=== PATIENT | male | born 2000 | race Caucasian/White ===

== ENCOUNTER 2020-06-21 11:27 | Emergency (ER) | payer BC ==
--- OUTSIDE RECORDS SUMMARY | 2020-06-21 11:30 | XMS REPORT | Continuity of Care Document ---
:2000 Author Organization [facility] t Address [facility] [address]. Fountain [address] [place] [id number] Care Team Providers Name Role Phone Long Attending Clinician Problems This patient has no known problems. Allergies, Adverse Reactions, Alerts This patient has no known allergies or adverse reactions. Medications This patient has no known medications. Procedures This patient has no known procedures. Encounters Start End Encounter Admission Attending Care Care Encounter Source Date/Time Date/Time Type Type Clinicians Facility Department ID 2018-11-26 2018-11-26 Telephone [facility] [id number] 00:00:00 00:00:00 Dev Mas [id number] [facility] [id number] [facility] [id number] 225 Results This patient has no known results.
--- NOTE | 2020-06-21 12:40 | RAD REPORT ---
EXAM DESCRIPTION: RAD - Knee Left 3 View - 06/21/2020 12:27 pm CLINICAL HISTORY: PAIN COMPARISON: No comparisons FINDINGS: No acute fracture or dislocation seen. No significant joint effusion evident.
--- NOTE | 2020-06-21 13:01 | ER ---
Nurse's Notes [facility] Name: Justin Edwards Age: 19 yrs Sex: Male : 2000 Arrival Date: 06/21/2020 Time: 11:31 Bed 11 Private MD: Diagnosis: Pain in right knee Presentation: 06/21 11:51 Chief complaint: Patient states: fell off a flatbed trailer about 0930 this morning. ca1 Reports pain and abrasion on L knee. 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 Coronavirus screen: Client denies travel out of the [place] in the last 14 days. At this time, the client does not indicate any symptoms associated with coronavirus-19. Ebola Screen: Patient negative for fever greater than or equal to 101.5 degrees Fahrenheit, and additional compatible Ebola Virus Disease symptoms Patient denies exposure to infectious person. Patient denies travel to an Ebola-affected area in the 21 days before illness onset. No symptoms or risks identified at this time. Initial Sepsis Screen: Does the patient meet any 2 criteria? No. Patient's initial sepsis screen is negative. Does the patient have a suspected source of infection? No. Patient's initial sepsis screen is negative. Risk Assessment: Do you want to hurt yourself or someone else? Patient reports no desire to harm self or others. Onset of symptoms was June 21, 2020. 11:51 Method Of Arrival: Ambulatory ca1 11:51 Acuity: LOUISE 4 ca1 Triage Assessment: 11:53 General: Appears in no apparent distress. comfortable, Behavior is calm, cooperative, ca1 appropriate for age. Pain: Complains of pain in left knee Pain currently is 5 out of 10 on a pain scale. Derm: Skin is intact, is healthy with good turgor, Skin is pink, warm \T\ dry. Musculoskeletal: Circulation, motion, and sensation intact. Capillary refill < 3 seconds, Range of motion: intact in all extremities. Injury Description: Abrasion sustained to left knee. Historical: - Allergies: 11:53 No Known Allergies; ca1 - Home Meds: 11:53 None [Active]; ca1 - PMHx: 11:53 None; ca1 - PSHx: 11:53 None; ca1 - Immunization history:: Flu vaccine is not up to date. - Social history:: Smoking status: Patient denies any tobacco usage or history of. Screenin:55 Abuse screen: Denies threats or abuse. Denies injuries from another. Nutritional ca1 screening: No deficits noted. Tuberculosis screening: No symptoms or risk factors identified. Fall Risk Fall in past 12 months (25 points). Assessment: 11:55 Reassessment: see triage notes. ca1 12:50 Reassessment: MESERET bandage applied to left knee. aa5 13:30 Reassessment: Patient appears in no apparent distress at this time. Patient is alert, ca1 oriented x 3, equal unlabored respirations, skin warm/dry/pink. Vital Signs: 11:51 BP 105 / 63; Pulse 71; Resp 16 S; Temp 98.6(TE); Pulse Ox 100% on R/A; Weight 61.23 kg ca1 (R); Height 5 ft. 8 in. (172.72 cm) (R); Pain 4/10; 11:51 Body Mass Index 20.53 (61.23 kg, 172.72 cm) ca1 ED Course: 11:31 Patient arrived in ED. as 11:52 Triage completed. ca1 11:53 Arm band placed on right wrist. ca1 11:55 Merle Go RN is Primary Nurse. ca1 11:55 Patient has correct armband on for positive identification. Bed in low position. Call ca1 light in reach. 12:01 Keira M[facility] FNP-C [facility]. kb 12:01 Moshe Woodard MD is Attending Physician. kb 12:26 Knee Left 3 View XRAY In Process Unspecified. EDMS 13:30 No provider procedures requiring assistance completed. Patient did not have IV access ca1 during this emergency room visit. Administered Medications: No medications were administered Outcome: 13:01 Discharge ordered by . kb 13:30 Discharged to home ambulatory. ca1 13:30 Condition: stable 13:30 Discharge instructions given to patient, Instructed on discharge instructions, follow up and referral plans. Demonstrated understanding of instructions, follow-up care. 13:32 Patient left the ED. aa5 Signatures: Dispatcher [employer] EDMS Keira Méndez FNP-C FNP-Ckb Martinez, Amelia as Calderon, Audri, RN RN aa5 Merle Go RN RN ca1
--- NOTE | 2020-06-21 13:01 | EDPHYS ---
Physician Documentation [facility] Name: Justin Edwards Age: 19 yrs Sex: Male : 2000 Arrival Date: 06/21/2020 Time: 11:31 Bed 11 Private MD: ED Physician Moshe Woodard HPI: 06/21 13:51 This 19 yrs old Male presents to ER via Ambulatory with complaints of Knee kb Injury. 13:51 The patient presents with pain, that is acute. The complaints affect the left knee. kb Context: The problem was sustained outdoors, resulted from the patient falling, from trailer, the patient can fully bear weight, the patient is able to ambulate. Onset: The symptoms/episode began/occurred just prior to arrival. Modifying factors: The symptoms are alleviated by nothing. the symptoms are aggravated by bending knee. Associated signs and symptoms: The patient has no apparent associated signs or symptoms. Treatment prior to arrival includes: over the counter medications, NSAIDS. Severity of symptoms: At their worst the symptoms were moderate, in the emergency department the symptoms have improved. The patient has not experienced similar symptoms in the past. The patient has not recently seen a physician. Historical: - Allergies: 11:53 No Known Allergies; ca1 - Home Meds: 11:53 None [Active]; ca1 - PMHx: 11:53 None; ca1 - PSHx: 11:53 None; ca1 - Immunization history:: Flu vaccine is not up to date. - Social history:: Smoking status: Patient denies any tobacco usage or history of. ROS: 13:50 Constitutional: Negative for fever, chills, and weight loss, Neuro: Negative for kb headache, weakness, numbness, tingling, and seizure. 13:50 MS/extremity: Positive for abrasion, pain, of the left knee. Exam: 13:49 Constitutional: This is a well developed, well nourished patient who is awake, alert, kb and in no acute distress. Head/Face: Normocephalic, atraumatic. 13:49 Respiratory: the patient does not display signs of respiratory distress, Respirations: normal. 13:49 Musculoskeletal/extremity: Extremities: grossly normal except: noted in the left knee: pain, ROM: limited active range of motion due to pain, in the left knee, Circulation is intact in all extremities. Sensation intact. Weight bearing: able to fully bear weight. 13:49 Skin: injury, abrasion(s), small abrasion noted, of the left knee. 13:49 Neuro: Orientation: is normal, to person, place, time \T\ situation. Mentation: is normal, able to follow commands, Motor: is normal, moves all fours, Sensation: is normal, Gait: is steady. Vital Signs: 11:51 BP 105 / 63; Pulse 71; Resp 16 S; Temp 98.6(TE); Pulse Ox 100% on R/A; Weight 61.23 kg ca1 (R); Height 5 ft. 8 in. (172.72 cm) (R); Pain 4/10; 11:51 Body Mass Index 20.53 (61.23 kg, 172.72 cm) ca1 MDM: 12:01 Patient medically screened. kb 12:42 Data reviewed: vital signs, nurses notes. Data interpreted: Pulse oximetry: on room air kb is 100 %. Interpretation: normal. Counseling: I had a detailed discussion with the patient and/or guardian regarding: the historical points, exam findings, and any diagnostic results supporting the discharge/admit diagnosis, the need for outpatient follow up, a orthopedic surgeon, to return to the emergency department if symptoms worsen or persist or if there are any questions or concerns that arise at home. 06/21 12:02 Order name: Knee Left 3 View XRAY; Complete Time: 12:42 kb 06/21 12:42 Order name: Marciano Wrap; Complete Time: 12:47 kb Administered Medications: No medications were administered Disposition: 17:55 Co-signature as Attending Physician, Moshe Woodard MD. rn Disposition: 06/21/20 13:01 Discharged to Home. Impression: Pain in right knee. - Condition is Stable. - Discharge Instructions: Knee Pain, [id number]. - Medication Reconciliation Form, Thank You Letter, Antibiotic Education, Prescription Opioid Use form. - Follow up: Emergency Department; When: As needed; Reason: Worsening of condition. Follow up: Private Physician; When: 2 - 3 days; Reason: Recheck today's complaints, Continuance of care, Re-evaluation by your physician. Signatures: Dispatcher [employer] EDKeira Allen, SR. PAYROLL MANAGER-C SR. PAYROLL MANAGER-Moshe Price MD MD rn Calderon, Audri, RN RN aa5 Merle Go RN RN ca1 Corrections: (The following items were deleted from the chart) 13:32 13:01 06/21/2020 13:01 Discharged to Home. Impression: Pain in right knee. Condition is aa5 Stable. Forms are Medication Reconciliation Form, Thank You Letter, Antibiotic Education, Prescription Opioid Use. Follow up: Emergency Department; When: As needed; Reason: Worsening of condition. Follow up: Private Physician; When: 2 - 3 days; Reason: Recheck today's complaints, Continuance of care, Re-evaluation by your physician. kb 13:52 13:51 Severity of symptoms: At their worst the symptoms were moderate, in the emergency kb department the symptoms are unchanged, kb
[2020-06-21 14:11] VITALS: BP 105/63; TEMP 98.6; O2SAT 100
== END 2020-06-21 13:32 | disposition home or self-care (01) ==
LOC: ER 11:27
DX: M25.562 Pain in left knee (principal); W17.89XA Other fall from one level to another, initial encounter
CPT/HCPCS: 99283

== ENCOUNTER 2021-05-28 14:03 | Emergency (ER) | payer BC ==
--- OUTSIDE RECORDS SUMMARY | 2021-05-28 14:07 | XMS REPORT | Continuity of Care Document ---
:2000 Author Organization [facility] Address [address] [place] [address] Dr. [address] [place] [address] Care Team Providers Name Role Phone Long Attending Clinician Payers Payer Name Policy Type Policy Number Effective Date Expiration Date S ource Problems Condition Condition Condition Status Onset Resolution Last Treating Co mments Source Name Details Category Date Date Treatment Clinician Date No known No known Disease Unive rs active active ity of problems problems [facility] Allergies, Adverse Reactions, Alerts This patient has no known allergies or adverse reactions. Social History Social Habit Start Date Stop Date Quantity Comments Source Sex Assigned At Uni versity [facility] Smoking Status Start Date Stop Date Source Never smoker [facility] Medications Ordered Filled Start Stop Current Ordering Indication Dosage Frequency Signature Comments Components Source Medication Medication Date Date Medication? Clinician (SIG) Name Name No known [facility] Ordered Immunization Filled Immunization Date Status Commen ts Source Name Name HPV9 2018-10-06 Completed [facility] of 00:00:00 [facility] Meningococcal 2018-06-09 Completed University of Polysaccharide 00:00:00 [facility] (groups A, C, Y and Branc h W-135) conjugate vaccine (MCV4P) HPV9 2018-06-09 Completed [facility] of 00:00:00 [facility] Meningococcal 2012-07-22 Completed [facility] of Polysaccharide 00:00:00 [facility] (groups A, C, Y and Branc h W-135) conjugate vaccine (MCV4P) Tdap 2012-07-22 Completed [facility] of 00:00:00 [facility] Varicella 2012-07-22 Completed University (varivax)(chicken 00:00:00 [facility] edical pox) [place] HEPATITIS A 2012-07-22 Completed University of 00:00:00 [facility] Procedures This patient has no known procedures. Encounters Start End Encounter Admission Attending Care Care Encounter Source Date/Time Date/Time Type Type Clinicians Facility Department ID 2018-11-26 2018-11-26 Telephone de [facility] [id number] 00:00:00 00:00:00 Dev Mas [id number] [facility] [id number] [facility] [id number] 225 2018-11-26 2018-11-26 Telephone de [facility] [id number] [facility] 00:00:00 00:00:00 Dev Mas [id number] ity of [id number] [facility] [id number] [facility] [address] Results This patient has no known results.
[2021-05-28 14:39] LABS: Absolute Lymphocytes (CBC) 1.9 K/uL (0.7-4.9); Hematocrit 46.8 % (39.6-49.0); Lymphocytes % 22.8 % (15.3-44.8); MPV 8.5 fL (7.6-11.3); RBC Red Blood Cell Count 5.25 M/uL (4.33-5.43)
[2021-05-28 14:51] LABS: BUN Blood Urea Nitrogen 13 mg/dL (7-18); Bicarbonate 30 mmol/L (21-32); Glucose Level 81 mg/dL (74-106); Potassium 3.5 mmol/L (3.5-5.1); Sodium Level 138 mmol/L (136-145)
[2021-05-28 14:54] LABS: Urine Blood Trace-intact (Negative); Urine Glucose Negative (Negative); Urine Protein Negative (Negative); Urine pH 7.5 (5.0-7.0)
--- NOTE | 2021-05-28 15:46 | RAD REPORT ---
EXAM DESCRIPTION: CTAbdomen Pelvis W Contrast - 05/28/2021 3:11 pm CLINICAL HISTORY: ABD PAIN COMPARISON: No comparisons TECHNIQUE: CT of the abdomen and pelvis was performed. All CT scans are performed using dose optimization technique as appropriate and may include automated exposure control or mA/KV adjustment according to patient size. FINDINGS: Lower chest: No acute abnormality. Liver: No acute abnormality or suspicious lesions. Biliary: No biliary ductal dilatation. Stomach: No significant focal abnormality. Duodenum: No significant focal abnormality. Pancreas: No significant abnormality. Spleen: No significant abnormality. Adrenal: No suspicious lesions. Kidney/ureter: No hydronephrosis. No renal calculi. Retroperitoneum: No retroperitoneal adenopathy. Vascular: No aneurysm. Bowel: No significant focal abnormality. Normal appendix. Peritoneum: No ascites or free air. Bladder: Grossly unremarkable. Reproductive: No adnexal masses. Bones: No acute fracture. Other: n/a IMPRESSION: No acute intra-abdominal or pelvic finding. Normal appendix.
--- NOTE | 2021-05-28 15:53 | ER ---
Nurse's Notes [facility] Name: Justin Edwards Age: 20 yrs Sex: Male : 2000 Arrival Date: 05/28/2021 Time: 14:05 Bed DIS4 Private MD: Diagnosis: Lower abdominal pain, unspecified Presentation: 05/28 14:22 Chief complaint: Patient states: rlq pain started yesterday. sharp burning pain. [facility] Coronavirus screen: Vaccine status: Patient reports being unvaccinated. Client denies travel out of the [place] in the last 14 days. Ebola Screen: Patient denies travel to an Ebola-affected area in the 21 days before illness onset. Initial Sepsis Screen: Does the patient meet any 2 criteria? No. Patient's initial sepsis screen is negative. Does the patient have a suspected source of infection? No. Patient's initial sepsis screen is negative. Risk Assessment: Do you want to hurt yourself or someone else? Patient reports no desire to harm self or others. Onset of symptoms was May 27, 2021. 14:22 Method Of Arrival: Ambulatory [facility] 14:22 Acuity: LOUISE 3 [facility] Triage Assessment: 14:25 General: Appears in no apparent distress. comfortable, Behavior is calm, cooperative. [facility] Pain: Denies pain. GI: No deficits noted. Abdomen is flat, Reports lower abdominal pain. Historical: - Allergies: 14:24 No Known Allergies; [facility] - Home Meds: 14:24 None [Active]; [facility] - Immunization history:: Client reports having NOT received the Covid vaccine. - Social history:: Smoking status: Patient denies any tobacco usage or history of. Screenin:14 Abuse screen: Denies threats or abuse. Denies injuries from another. Nutritional ss screening: No deficits noted. Tuberculosis screening: Never had TB. Fall Risk None identified. Assessment: 16:14 General: Appears in no apparent distress. comfortable, Behavior is calm, cooperative. ss Neuro: Level of Consciousness is awake, alert, obeys commands, Oriented to person, place, time, situation. Cardiovascular: Capillary refill < 3 seconds is brisk in bilateral fingers. Respiratory: Airway is patent Respiratory effort is even, unlabored, Respiratory pattern is regular, symmetrical. Derm: Skin is intact, is healthy with good turgor, Skin is pink, warm \T\ dry. normal. Musculoskeletal: Circulation, motion, and sensation intact. Range of motion: intact in all extremities, Swelling absent. Vital Signs: 14:22 BP 134 / 79; Pulse 70; Resp 17; Temp 97.8; Pulse Ox 100% ; Weight 70.31 kg; Height 5 [facility] ft. 8 in. (172.72 cm); Pain 0/10; 14:22 Body Mass Index 23.57 (70.31 kg, 172.72 cm) [facility] ED Course: 14:05 Patient arrived in ED. am2 14:23 Keira Méndez FNP-C is [facility]. kb 14:23 Moshe Woodard MD is Attending Physician. kb 14:24 Triage completed. [facility] 15:11 CT Abd/Pelvis - IV Contrast Only In Process Unspecified. EDMS 16:14 Nancy Victoria, RN is Primary Nurse. ss 16:14 Patient has correct armband on for positive identification. ss 16:14 No provider procedures requiring assistance completed. IV discontinued, intact, ss bleeding controlled, No redness/swelling at site. Pressure dressing applied. Administered Medications: No medications were administered Outcome: 15:52 Discharge ordered by MD. kb 16:14 Discharged to home ambulatory. ss 16:14 Condition: good 16:14 Discharge instructions given to patient, Instructed on discharge instructions, follow up and referral plans. Demonstrated understanding of instructions, follow-up care. 16:15 Patient left the ED. ss Signatures: Dispatcher [employer] EDDC Keira Méndez FNP-C HYDRAULICS TEACHER-Nancy Collins RN RN Joyce Wilkerson formerly [facility] Joceline Davis RN RN [facility]
--- NOTE | 2021-05-28 15:54 | EDPHYS ---
Physician Documentation [facility] Name: Justin Edwards Age: 20 yrs Sex: Male : 2000 Arrival Date: 05/28/2021 Time: 14:05 Bed DIS4 Private MD: ED Physician Moshe Woodard HPI: 05/28 15:25 This 20 yrs old Male presents to ER via Ambulatory with complaints of Abdominal Pain - kb RLQ. 15:25 The patient presents with abdominal pain right lower quadrant. Onset: The kb symptoms/episode began/occurred yesterday. The symptoms do not radiate. Associated signs and symptoms: Pertinent positives: nausea, Pertinent negatives: diarrhea, fever, vomiting. The symptoms are described as constant. Modifying factors: The symptoms are alleviated by nothing, the symptoms are aggravated by nothing. Severity of pain: At its worst the pain was moderate in the emergency department the pain is unchanged. The patient has not experienced similar symptoms in the past. The patient has not recently seen a physician. Pt reports intermittent RLQ since yesterday. Reports slight nausea, no vomiting, diarrhea or fever. Historical: - Allergies: 14:24 No Known Allergies; 6 - Home Meds: 14:24 None [Active]; [facility] - Immunization history:: Client reports having NOT received the Covid vaccine. - Social history:: Smoking status: Patient denies any tobacco usage or history of. ROS: 15:24 Constitutional: Negative for fever, chills, and weight loss. kb 15:24 Abdomen/GI: Positive for abdominal pain, nausea, Negative for vomiting, diarrhea, constipation. 15:24 All other systems are negative. Exam: 15:24 Constitutional: This is a well developed, well nourished patient who is awake, alert, kb and in no acute distress. Head/Face: Normocephalic, atraumatic. ENT: Moist Mucous membranes Cardiovascular: Regular rate and rhythm with a normal S1 and S2. No gallops, murmurs, or rubs. No pulse deficits. Respiratory: Respirations even and unlabored. No increased work of breathing. Talking in full sentences Abdomen/GI: Soft, non-tender. No distention Skin: Warm, dry with normal turgor. Normal color. MS/ Extremity: Pulses equal, no cyanosis. Neurovascular intact. Full, normal range of motion. Neuro: Awake and alert, GCS 15, oriented to person, place, time, and situation. Moves all extremities. Normal gait. Psych: Awake, alert, with orientation to person, place and time. Behavior, mood, and affect are within normal limits. Vital Signs: 14: BP 134 / 79; Pulse 70; Resp 17; Temp 97.8; Pulse Ox 100% ; Weight 70.31 kg; Height 5 jh6 ft. 8 in. (172.72 cm); Pain 0/10; 14:22 Body Mass Index 23.57 (70.31 kg, 172.72 cm) jh6 MDM: 14:23 Patient medically screened. kb 15:23 Data reviewed: vital signs, nurses notes. Data interpreted: Pulse oximetry: on room air kb is 100 %. Interpretation: normal. 15:52 Counseling: I had a detailed discussion with the patient and/or guardian regarding: the kb historical points, exam findings, and any diagnostic results supporting the discharge/admit diagnosis, lab results, radiology results, the need for outpatient follow up, a family practitioner, to return to the emergency department if symptoms worsen or persist or if there are any questions or concerns that arise at home. 05/28 14:23 Order name: Basic Metabolic Panel; Complete Time: 14:55 kb 05/28 14:23 Order name: CBC with Diff; Complete Time: 14:45 kb 05/28 14:23 Order name: IV Saline Lock; Complete Time: 14:46 kb 05/28 14:23 Order name: Labs collected and sent; Complete Time: 14:46 kb 05/28 14:23 Order name: CT Abd/Pelvis - IV Contrast Only; Complete Time: 15:52 kb 05/28 14:54 Order name: Urine Dipstick-Ancillary; Complete Time: 14:55 EDMS 05/28 14:23 Order name: Urine Dipstick-Ancillary (obtain specimen); Complete Time: 15:04 kb Administered Medications: No medications were administered Disposition: 17:48 Co-signature as Attending Physician, Moshe Woodard MD I agree with the assessment and rn plan of care. Attestation: The patient's history, exam findings, diagnostics, and a summary of any interventions or procedures was reviewed in detail with Keira RODRIGUES. Disposition Summary: 05/28/21 15:52 Discharge Ordered Location: Home kb Condition: Stable kb Diagnosis - Lower abdominal pain, unspecified kb Followup: kb - With: Emergency Department - When: As needed - Reason: Worsening of condition Followup: kb - With: Private Physician - When: 2 - 3 days - Reason: Recheck today's complaints, Continuance of care, Re-evaluation by your physician Discharge Instructions: - Discharge Summary Sheet kb - Abdominal Pain, Adult, [id number] kb Forms: - Medication Reconciliation Form kb - Thank You Letter kb - Antibiotic Education kb - Prescription Opioid Use kb Signatures: Dispatcher [employer] EDKeira Allen, ASSEMBLY LINE ROBOT OPERATOR-C ASSEMBLY LINE ROBOT OPERATOR-Antolinb Moshe Woodard MD MD rn HastedtJoceline RN RN jh6
[2021-05-28 16:20] VITALS: BP 134/79; TEMP 97.8; O2SAT 100
== END 2021-05-28 16:15 | disposition home or self-care (01) ==
LOC: ER 14:03
DX: R10.31 Right lower quadrant pain (principal)
CPT/HCPCS: 85025; 80048; 36415; 81003; 74177; 99283; Q9967

== ENCOUNTER 2022-01-13 00:28 | Emergency (ER) | payer BC ==
--- OUTSIDE RECORDS SUMMARY | 2022-01-13 00:31 | XMS REPORT | Continuity of Care Document ---
:2000 Author Organization [facility] Address [address] [place] [address] [address] [place] [address] Care Team Providers Name Role Phone Glenda Long Attending Clinician Payers Payer Name Policy Type Policy Number Effective Date Expiration Date S ource Problems Condition Condition Condition Status Onset Resolution Last Treating Co mments Source Name Details Category Date Date Treatment Clinician Date No known No known Disease Unive rs active active ity of problems problems [facility] Allergies, Adverse Reactions, Alerts This patient has no known allergies or adverse reactions. Social History Social Habit Start Date Stop Date Quantity Comments Source Sex Assigned At Uni versity [facility] Smoking Status Start Date Stop Date Source Never smoker [facility] Medications Ordered Filled Start Stop Current Ordering Indication Dosage Frequency Signature Comments Components Source Medication Medication Date Date Medication? Clinician (SIG) Name Name No known No [facility] Ordered Immunization Filled Immunization Date Status Commen ts Source Name Name HPV9 2018-10-06 Completed [facility] of 00:00:00 [facility] Meningococcal 2018-06-09 Completed University of Polysaccharide 00:00:00 [facility] dudley (groups A, C, Y and Branc h W-135) conjugate vaccine (MCV4P) HPV9 2018-06-09 Completed [facility] of 00:00:00 [facility] Meningococcal 2012-07-22 Completed [facility] Polysaccharide 00:00:00 [facility] (groups A, C, Y and Branc h W-135) conjugate vaccine (MCV4P) Tdap 2012-07-22 Completed [facility] of 00:00:00 [facility] Varicella 2012-07-22 Completed University of (varivax)(chicken 00:00:[address] [facility] edical pox) Branch HEPATITIS A 2012-07-22 Completed [facility] 00:00:00 [facility] Procedures This patient has no known procedures. Encounters Start End Encounter Admission Attending Care Care Encounter Source Date/Time Date/Time Type Type Clinicians Facility Department ID 2018-11-26 2018-11-26 Telephone [facility] [id number] 00:00:00 00:00:00 [facility] [id number] [facility] [id number] [facility] [id number] 2018-11-26 2018-11-26 Telephone [facility] [id number] [facility] 00:00:00 00:00:00 Dev [facility] [id number] [facility] [id number] [place] [facility] [phone] [facility] 225 Branch Results This patient has no known results.
--- NOTE | 2022-01-13 01:56 | EDPHYS ---
Physician Documentation [facility] Name: Justin Edwards Age: 21 yrs Sex: Male : 2000 Arrival Date: 01/13/2022 Time: 00:32 Bed 8 Private MD: ED Physician Bob Garcia HPI: 01/13 01:51 This 21 yrs old Male presents to ER via Ambulatory with complaints of Facial leela Swelling, Numbness Of Face. 01:51 The patient's problem is reported as. leela Historical: - Allergies: 00:45 No Known Allergies; tw5 - Home Meds: 00:45 None [Active]; tw5 - PMHx: 00:45 None; tw5 - PSHx: 00:45 None; tw5 - Immunization history:: Flu vaccine is not up to date. - Social history:: Smoking status: Reported history of juuling and/or vaping. ROS: 01:52 Constitutional: Negative for fever, chills, and weight loss, Eyes: Negative for injury, leela pain, redness, and discharge, Neck: Negative for injury, pain, and swelling, Cardiovascular: Negative for chest pain, palpitations, and edema, Respiratory: Negative for shortness of breath, cough, wheezing, and pleuritic chest pain, Abdomen/GI: Negative for abdominal pain, nausea, vomiting, diarrhea, and constipation, Back: Negative for injury and pain, : Negative for injury, bleeding, discharge, and swelling, MS/Extremity: Negative for injury and deformity, Skin: Negative for injury, rash, and discoloration, Neuro: Negative for headache, weakness, numbness, tingling, and seizure, Psych: Negative for depression, anxiety, suicide ideation, homicidal ideation, and hallucinations, Allergy/Immunology: Negative for hives, rash, and allergies, Endocrine: Negative for neck swelling, polydipsia, polyuria, polyphagia, and marked weight changes, Hematologic/Lymphatic: Negative for swollen nodes, abnormal bleeding, and unusual bruising. 01:52 ENT: Positive for FACE SWELLING. Exam: 01:52 Constitutional: This is a well developed, well nourished patient who is awake, alert, leela and in no acute distress. Head/Face: Normocephalic, atraumatic. Eyes: Pupils equal round and reactive to light, extra-ocular motions intact. Lids and lashes normal. Conjunctiva and sclera are non-icteric and not injected. Cornea within normal limits. Periorbital areas with no swelling, redness, or edema. ENT: Nares patent. No nasal discharge, no septal abnormalities noted. Tympanic membranes are normal and external auditory canals are clear. Oropharynx with no redness, swelling, or masses, exudates, or evidence of obstruction, uvula midline. Mucous membranes moist. Neck: Trachea midline, no thyromegaly or masses palpated, and no cervical lymphadenopathy. Supple, full range of motion without nuchal rigidity, or vertebral point tenderness. No Meningismus. Chest/axilla: Normal chest wall appearance and motion. Nontender with no deformity. No lesions are appreciated. Cardiovascular: Regular rate and rhythm with a normal S1 and S2. No gallops, murmurs, or rubs. Normal PMI, no JVD. No pulse deficits. Respiratory: Lungs have equal breath sounds bilaterally, clear to auscultation and percussion. No rales, rhonchi or wheezes noted. No increased work of breathing, no retractions or nasal flaring. Abdomen/GI: Soft, non-tender, with normal bowel sounds. No distension or tympany. No guarding or rebound. No evidence of tenderness throughout. Back: No spinal tenderness. No costovertebral tenderness. Full range of motion. Skin: Warm, dry with normal turgor. Normal color with no rashes, no lesions, and no evidence of cellulitis. MS/ Extremity: Pulses equal, no cyanosis. Neurovascular intact. Full, normal range of motion. Neuro: Awake and alert, GCS 15, oriented to person, place, time, and situation. Cranial nerves II-XII grossly intact. Motor strength 5/5 in all extremities. Sensory grossly intact. Cerebellar exam normal. Normal gait. Psych: Awake, alert, with orientation to person, place and time. Behavior, mood, and affect are within normal limits. 01:52 Musculoskeletal/extremity: DVT Exam: No signs of deep vein thrombosis. no pain, no swelling, no tenderness, negative Homans' sign noted on exam, no appreciated bluish discoloration, no erythema, no increased warmth. Vital Signs: 00:44 BP 118 / 76; Pulse 86; Resp 18; Temp 98.8; Pulse Ox 100% on R/A; Weight 77.11 kg; tw5 Height 5 ft. 8 in. (172.72 cm); Pain 0/10; 00:55 BP 125 / 74; Pulse 70; Resp 18; Pulse Ox 100% on R/A; kl 00:44 Body Mass Index 25.85 (77.11 kg, 172.72 cm) tw5 MDM: 00:48 Patient medically screened. leela 01:53 Differential diagnosis: angioedema, Hereditary Angioedema non IgE mediated drug leela reaction urticaria. Data reviewed: vital signs, nurses notes. 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 Counseling: I had a detailed discussion with the patient and/or guardian regarding: the historical points, exam findings, and any diagnostic results supporting the discharge/admit diagnosis, the need for outpatient follow up. Administered Medications: 02:00 Drug: Benadryl (diphenhydrAMINE) 25 mg Route: PO; ll3 02:06 Follow up: Response: Medication administered at discharge. ll3 02:00 Drug: Pepcid (famotidine) 40 mg Route: PO; ll3 02:06 Follow up: Response: Medication administered at discharge. ll3 02:00 Drug: predniSONE 60 mg Route: PO; ll3 02:06 Follow up: Response: Medication administered at discharge. ll3 Disposition Summary: 01/13/22 01:56 Discharge Ordered Location: Home leela Problem: new leela Symptoms: have improved leela Condition: Stable leela Diagnosis - Allergy, unspecified leela - Allergy, unspecified, initial encounter leela Followup: leela - With: Private Physician - When: 2 - 3 days - Reason: Recheck today's complaints, Continuance of care, Re-evaluation by your physician Discharge Instructions: - Discharge Summary Sheet leela - Allergies, Adult leela - Allergies, Adult, [id number] leela Forms: - Medication Reconciliation Form leela - Thank You Letter leela - Antibiotic Education leela - Prescription Opioid Use leela Prescriptions: - Benadryl 25 mg Oral Capsule - take 1 capsule by ORAL route every 6 hours As needed; 30 tablet; Refills: 0, leela Product Selection Permitted - Pepcid 20 mg Oral Tablet - take 1 tablet by ORAL route every 12 hours for 10 days; 20 tablet; Refills: 0, leela Product Selection Permitted - Medrol (Artie) 4 mg Oral Tablets, Dose Pack - take 1 tablet by ORAL route as directed - follow package instructions; 1 leela packet; Refills: 0, Product Selection Permitted Signatures: Bob Garcia MD MD cha Wood, Tiffany tw5 Say Vázquez RN RN ll3
--- NOTE | 2022-01-13 01:56 | ER ---
Nurse's Notes [facility] Name: Justin Edwards Age: 21 yrs Sex: Male : 2000 Arrival Date: 01/13/2022 Time: 00:32 Bed 8 Private MD: Diagnosis: Allergy, unspecified;Allergy, unspecified, initial encounter Presentation: 01/13 00:44 Chief complaint: Patient states: "I felt like the right side of my face was swollen and tw5 numb, then the numbness moved to my left side of my face. Most recently it started to feel like the numbness was moving down my neck. ". Coronavirus screen: Vaccine status: Patient reports being unvaccinated. Ebola Screen: Patient negative for fever greater than or equal to 101.5 degrees Fahrenheit, and additional compatible Ebola Virus Disease symptoms Patient denies exposure to infectious person. Patient denies travel to an Ebola-affected area in the 21 days before illness onset. Initial Sepsis Screen: Does the patient meet any 2 criteria? No. Patient's initial sepsis screen is negative. Does the patient have a suspected source of infection? No. Patient's initial sepsis screen is negative. Risk Assessment: Do you want to hurt yourself or someone else? Patient reports no desire to harm self or others. Onset of symptoms was January 13, 2022. 00:44 Method Of Arrival: Ambulatory tw5 00:44 Acuity: LOUISE 3 tw5 Triage Assessment: 00:45 General: Appears in no apparent distress. Behavior is calm, cooperative, appropriate tw5 for age. EENT: No deficits noted. Historical: - Allergies: 00:45 No Known Allergies; tw5 - Home Meds: 00:45 None [Active]; tw5 - PMHx: 00:45 None; tw5 - PSHx: 00:45 None; tw5 - Immunization history:: Flu vaccine is not up to date. - Social history:: Smoking status: Reported history of juuling and/or vaping. Screenin:46 Abuse screen: Denies threats or abuse. Denies injuries from another. Nutritional tw5 screening: No deficits noted. Tuberculosis screening: No symptoms or risk factors identified. Fall Risk None identified. Assessment: 00:53 General: Appears in no apparent distress. comfortable, well groomed, well developed, kl Behavior is calm, cooperative. Pain: Denies pain. Neuro: No deficits noted. Level of Consciousness is awake, alert, obeys commands, Oriented to person, place, time, situation. Cardiovascular: No deficits noted. Respiratory: No deficits noted. Airway is patent Trachea midline Respiratory effort is even, unlabored, Respiratory pattern is regular, symmetrical. GI: No deficits noted. No signs and/or symptoms were reported involving the gastrointestinal system. : No deficits noted. No signs and/or symptoms were reported regarding the genitourinary system. EENT: Reports dry throat slight swelling to right jaw line. Derm: No deficits noted. No signs and/or symptoms reported regarding the dermatologic system. Vital Signs: 00:44 BP 118 / 76; Pulse 86; Resp 18; Temp 98.8; Pulse Ox 100% on R/A; Weight 77.11 kg; tw5 Height 5 ft. 8 in. (172.72 cm); Pain 0/10; 00:55 BP 125 / 74; Pulse 70; Resp 18; Pulse Ox 100% on R/A; kl 00:44 Body Mass Index 25.85 (77.11 kg, 172.72 cm) tw5 ED Course: 00:32 Patient arrived in ED. bp1 00:45 Triage completed. tw5 00:45 Arm band placed on. tw5 00:48 Bob Garcia MD is Attending Physician. leela 02:06 Patient has correct armband on for positive identification. Bed in low position. Call ll3 light in reach. Side rails up X 1. Adult w/ patient. 02:06 No provider procedures requiring assistance completed. Patient did not have IV access ll3 during this emergency room visit. Administered Medications: 02:00 Drug: Benadryl (diphenhydrAMINE) 25 mg Route: PO; ll3 02:06 Follow up: Response: Medication administered at discharge. ll3 02:00 Drug: Pepcid (famotidine) 40 mg Route: PO; ll3 02:06 Follow up: Response: Medication administered at discharge. ll3 02:00 Drug: predniSONE 60 mg Route: PO; ll3 02:06 Follow up: Response: Medication administered at discharge. ll3 Medication: 02:06 VIS not applicable for this client. ll3 Outcome: 01:56 Discharge ordered by . leela 02:06 Discharged to home ambulatory, with significant other. ll3 02:06 Condition: stable 02:06 Discharge instructions given to patient, significant other, Instructed on discharge instructions, follow up and referral plans. medication usage, Demonstrated understanding of instructions, follow-up care, medications, Prescriptions given X 3. 02:07 Patient left the ED. ll3 Signatures: Sheela Levi, RN RN Bob Ho MD MD cha Paniauga, Brittany bp1 Wood, Tiffany tw5 Say Vázquez, RN RN 3
[2022-01-13] MEDS ORDERED: DIPHENHYDRAMINE 25 MG TAB/CAP ONE (02:05)
[2022-01-13] MEDS ORDERED: predniSONE 20 MG TAB ONE (02:05)
[2022-01-13] MEDS ORDERED: FAMOTIDINE 20 MG TAB ONE (02:06)
[2022-01-14 15:28] VITALS: O2SAT 100
[2022-01-14 15:33] VITALS: BP 118/76; TEMP 98.8
== END 2022-01-13 02:07 | disposition home or self-care (01) ==
LOC: ER 00:28
DX: R22.9 Localized swelling, mass and lump, unspecified (principal); Z91.09 Other allergy status, other than to drugs and biological substances
CPT/HCPCS: 99283; J7512